=== PATIENT | male | born 1985 | race Two or more races ===

== ENCOUNTER 2020-12-04 11:20 | Emergency (ER) | payer OTHER ==
[~2020-12-04] VITALS: Ht 180.3 cm; Wt 74.8 kg
[2020-12-04] MEDS ORDERED: BUPRENORPHINE HCL 2 MG TAB.SUBL SL ONE ×2 (11:55→13:35)
[2020-12-04] MEDS ORDERED: ONDANSETRON HCL/PF 4 MG/2 ML VIAL ONE ×2 (11:55→13:35)
[2020-12-04] MEDS ORDERED: ONDANSETRON 4 MG TAB.RAPDIS ONE (11:57)
[2020-12-04] MEDS ORDERED: ONDANSETRON 4 MG TAB.RAPDIS SL ONE (12:00)
[2020-12-04] MEDS ORDERED: BUPRENORPHINE HCL 8 MG TAB.SUBL SL ONE ×2 (12:00→13:30)
--- NOTE | 2020-12-04 13:23 | NUR ---
PATIENT REFUSING TO BE DISCHARGED, C/O STILL NOT FEELING WELL. DR. GARZA AT BEDSIDE FOR RE-ASSESSMENT.
[2020-12-04] MEDS ORDERED: ONDANSETRON HCL/PF - ER 4 MG/2 ML VIAL IV ONE (13:30)
[2020-12-04] MEDS ORDERED: MAG HYDROX/AL HYDROX/SIMETH 30 ML UDC ONE (13:35)
[2020-12-04] MEDS ORDERED: LIDOCAINE VISCOUS 2% UD 15 ML UDC ONE (13:35)
[2020-12-04] MEDS ORDERED: MAG HYDROX/AL HYDROX/SIMETH 30 ML UDC PO ONE (14:00)
[2020-12-04] MEDS ORDERED: LIDOCAINE VISCOUS 2% UD 15 ML UDC MM ONE (14:00)
[2020-12-04 14:15] VITALS: BP 127/66
--- NOTE | 2020-12-04 14:15 | NUR ---
Patient discharged in custody in stable condition. Written and verbal after care instructions given. Patient verbalizes understanding of instruction.
== END 2020-12-04 14:16 ==
LOC: ER 11:22
DX: F11.23 Opioid dependence with withdrawal (principal); R11.2 Nausea with vomiting, unspecified; J34.89 Other specified disorders of nose and nasal sinuses
CPT/HCPCS: 96372; 99284; J2405 ×2; Q0162